=== PATIENT | female | born 1985 | race Caucasian/White ===

== ENCOUNTER 2020-03-05 21:28 | Emergency (ER) | payer BC ==
[2020-03-05 21:34] VITALS: BP 147/92; PULSE 80; RESP 18; TEMP 98.5
[2020-03-05] MEDS ORDERED: ACET/COD 300 MG/30 MG STARTER PACK 6 TAB BTL PO STA (22:19)
[2020-03-05] MEDS ORDERED: KETOROLAC 30 MG/ML 1 ML VIAL IM STA (22:19)
--- NOTE | 2020-03-05 22:34 | XR ---
EXAMINATION TYPE: XR ankle complete RT, XR foot complete RT DATE OF EXAM: 03/05/2020 CLINICAL HISTORY: Pain after twisting injury. TECHNIQUE: Frontal, lateral and oblique images of the right ankle and foot are obtained. COMPARISON: None. FINDINGS: There is no acute fracture/dislocation evident in the right ankle. The ankle mortise appe ars within normal limits. The overlying soft tissue appears unremarkable. There is no acute fracture or dislocation evident in the right foot. The joint spaces in the right f oot are preserved. Overlying soft tissue is unremarkable. IMPRESSION: There is no acute fracture or dislocation in the right ankle or foot.
--- NOTE | 2020-03-05 22:44 | ED ---
Lower Extremity Injury HPI - General Chief Complaint: Extremity Injury, Lower Stated Complaint: Ankle Injury Time Seen by Provider: 03/05/20 21:39 Source: patient Mode of arrival: ambulatory Limitations: no limitations - History of Present Illness Initial Comments: 34-year-old female patient presents to the emergency department today for evaluation of pain to the right ankle and foot. Patient states just prior to arrival she was walking her dog when she tripped over a curb and twisted ankle and foot. Patient states that she is able to bear weight however she does have increased pain with attempts to walk and to perform any range of motion of the ankle joint. She states that she did fall, she did hit her head. She denies any loss of consciousness. Denies any current headache, blurred vision, double vision. Denies any neck or back pain. Denies any dizziness, weakness, numbness, or tingling. Patient denies any history of injury to the ankle. Denies taking any medication for pain. Patient denies any chest pain, shortness of breath, dizziness, weakness, abdominal pain, nausea, vomiting, or difficulties with bowel movements or urination. - Related Data Allergies Allergy/AdvReac Type Severity Reaction Status Date / Time Cephalosporins Allergy Anaphylaxis Verified 03/05/20 21:35 Penicillins Allergy Anaphylaxis Verified 03/05/20 21:35 Review of Systems ROS Statement: Those systems with pertinent positive or pertinent negative responses have been documented in the HPI. ROS Other: All systems not noted in ROS Statement are negative. Past Medical History Past Medical History: No Reported History History of Any Multi-Drug Resistant Organisms: None Reported Past Surgical History: No Surgical Hx Reported Past Psychological History: Anxiety, Depression, PTSD Smoking Status: Former smoker Past Alcohol Use History: Occasional Past Drug Use History: None Reported General Exam Limitations: no limitations General appearance: alert, in no apparent distress, other (This is a well- developed, well-nourished adult female patient in no acute distress. Vital signs upon presentation are temperature 98.5F, pulse 80, respirations 18, blood pressure 147/92, pulse ox 100% on room air.) Neck exam: Present: normal inspection, full ROM, other (Nontender, no step-off, no deformity to firm midline palpation of the posterior cervical spine. Full range of motion without pain or limitation.). Absent: tenderness, meningismus, lymphadenopathy Respiratory exam: Present: normal lung sounds bilaterally. Absent: respiratory distress, wheezes, rales, rhonchi, stridor Extremities exam: Present: full ROM, normal capillary refill, other (There is soft tissue swelling noted over the right dorsal foot and over the right lateral ankle. Skin is otherwise pink, warm, dry. Cap refills less than 3 seconds. Pedal and posttibial pulses are 2+ and equal bilaterally.). Absent: normal inspection, tenderness, pedal edema, joint swelling, calf tenderness Back exam: Present: normal inspection. Absent: vertebral tenderness Neurological exam: Present: alert, oriented X3, CN II-XII intact Psychiatric exam: Present: normal affect, normal mood Skin exam: Present: warm, dry, intact, normal color. Absent: rash Course Vital Signs 03/05/20 21:29 Temperature 98.5 F Pulse Rate 80 Respiratory 18 Rate Blood Pressure 147/92 O2 Sat by Pulse 100 Oximetry Medical Decision Making - Medical Decision Making 34-year-old female patient presented to the emergency department today for evaluation of injury to the right foot and ankle. Physical examination did reveal soft tissue swelling and ecchymosis over the dorsal aspect of the foot and the right lateral ankle. Neurovascular status is intact. X-ray showed no acute fractures or dislocations. Patient symptoms are consistent with sprain. We did place an Dilan wrap and an ankle stirrup splint. She is instructed follow up with her primary care physician for recheck in 1-2 days. She is instructed to have repeat x-rays performed in 7-10 days if pain symptoms persist. Return parameters were discussed in detail. She verbalizes understanding and agrees with this plan. - Radiology Data Radiology results: report reviewed, image reviewed X-rays of the right ankle and foot were obtained. Report was reviewed in its entirety. Impression by Dr. Bennett shows no acute fracture dislocation the right ankle or foot. Disposition Clinical Impression: Right foot sprain, Right ankle sprain Disposition: HOME SELF-CARE Condition: Good Instructions (If sedation given, give patient instructions): Ankle Sprain (ED), Foot Sprain (ED) Additional Instructions: Use Dilan wrap and splint for comfort and support. Take, and Motrin for pain control. Rest, ice, elevate the foot. Follow-up with your primary care physician for recheck in 1-2 days. Have repeat x-rays performed in 7-10 days if pain symptoms persist. Return to the emergency department immediately for any new, worsening, or concerning symptoms. Is patient prescribed a controlled substance at d/c from ED?: No Referrals: None,Stated [Primary Care Provider] - 1-2 days Time of Disposition: 22:44
== END 2020-03-05 22:50 | disposition home or self-care (01) ==
LOC: EC 21:28
DX: S93.401A Sprain of unspecified ligament of right ankle, initial encounter (principal); S93.601A Unspecified sprain of right foot, initial encounter; Z88.0 Allergy status to penicillin; Z88.1 Allergy status to other antibiotic agents; Z87.891 Personal history of nicotine dependence; X50.1XXA Overexertion from prolonged static or awkward postures, initial encounter; Y93.K1 Activity, walking an animal
CPT/HCPCS: 73610; 73630; 99283; 29515; L4350